=== PATIENT | female | born 1995 | race Caucasian/White ===

== ENCOUNTER 2016-07-17 23:54 | Emergency (ER) | payer BC ==
[2016-07-18] MEDS ORDERED: predniSONE 20 MG Tab PO ONE (00:06)
[2016-07-18] MEDS ORDERED: diphenhydrAMINE 50 MG/ML SDV IM ONE (00:06)
--- NOTE | 2016-07-18 00:10 | EDM.PDOC ---
ED HPI Trauma - General Chief Complaint: Upper Extremity Injury/Pain Stated Complaint: BITE/LT ARM Time Seen by Provider: 07/17/16 23:55 - History of Present Illness INITIAL COMMENTS - FREE TEXT/NARRATIVE: HISTORY AND PHYSICAL: History of present illness: The patient is a 20-year-old female who states she was bitten by a spider at about 5:30 yesterday morning has had itching redness and burning sensation at that time. She denies any other systemic complaints of fever chest pain shortness of breath facial swelling or oral swelling. She is not taking any medications for this. She otherwise denies any pre-existing medical problems. There has not been any drainage or gross swelling of the arm. Review of systems: As per history of present illness and below otherwise all systems reviewed and negative. Past medical history: As per history of present illness and as reviewed below otherwise noncontributory. Surgical history: As per history of present illness and as reviewed below otherwise noncontributory. Social history: No reported history of drug or alcohol abuse. Family history: As per history of present illness and as reviewed below otherwise noncontributory. Physical exam: General: Well-developed well-nourished female whose vital signs reviewed by me and who was her weight. She speaking clearly and easily in the ER HEENT: Atraumatic, normocephalic, negative for conjunctival pallor or scleral icterus, mucous membranes moist, throat clear, neck supple, nontender, trachea midline. No oropharyngeal swelling is seen Lungs: Clear to auscultation, breath sounds equal bilaterally, chest nontender. Heart: S1S2, regular rate and rhythm no overt murmurs Abdomen: Soft, nondistended, nontender. NABS Skin: Normal turgor, patient is very pale in her natural coloring and there is no evidence of any rashes or lesions seen with the exception of the left upper extremity, please see the exam below Genitourinary: Deferred. Rectal: Deferred. Extremities: Atraumatic, full range of motion of all extremities and at the left upper extremity on the anterior aspect of the distal soft tissues humerus area there is a small raised area which the patient indicates as the site of the bite. There is no fluctuance or drainage seen and no ecchymosis seen. Surrounding this area and extending along the anterior aspect of the arm proximally and distally there is ill-defined warmth and pinkish erythema without ecchymosis of the compartments are all soft without soft tissue swelling. The patient intermittently will scratch the area and superficial scratch samuels can be seen. All other extremity supple range of motion without defects or deficits, Neurovascular unremarkable. Neuro: Awake, alert, oriented. Cranial nerves II through XII unremarkable. Cerebellum unremarkable. Motor and sensory unremarkable throughout. Exam nonfocal. Diagnostics: none Therapeutics: Benadryl prednisone Impression: Localized reaction to insect bite Definitive disposition and diagnosis as appropriate pending reevaluation and review of above. Allergies/ADRs: Allergies No Known Allergies Allergy (Verified 07/17/16 23:59) Home Medications: Ambulatory Orders Vitaminc C 1 tab PO DAILY 01/28/16 [Confirmed 07/17/16] Past Medical History HEENT History: Reports: None Cardiovascular History: Reports: None Respiratory History: Reports: Bronchitis, recurrent, Pneumonia, recurrent Psychiatric History: Reports: None - Infectious Disease History Infectious Disease History: Reports: None Social & Family History - Recreational Drug Use Recreational Drug Use: No Review of Systems - Review of Systems Review Of Systems: ROS reveals no pertinent complaints other than HPI. Trauma Exam - Physical Exam Exam: See Below (See dictation) Course - Vital Signs Last Recorded V/S: Last Vital Signs Temp 36.9 C 07/17/16 23:59 Pulse 88 07/17/16 23:59 Resp 17 07/17/16 23:59 BP 136/93 H 07/17/16 23:59 Pulse Ox 100 07/17/16 23:59 - Orders/Labs/Meds Meds: Medications Discontinued Medications Generic Name Dose Route Start Last Admin Trade Name Edna PRN Reason Stop Dose Admin Diphenhydramine HCl 50 mg 07/18/16 00:06 Benadryl IM 07/18/16 00:07 ONETIME ONE Prednisone 40 mg 07/18/16 00:06 Prednisone PO 07/18/16 00:07 ONETIME ONE Departure - Departure Time of Disposition: 00:11 Disposition: Home, Self-Care 01 Condition: good Clinical Impression: Insect bite Qualifiers: Encounter type: initial encounter Qualified Code(s): W57.XXXA - Bitten or stung by nonvenomous insect and other nonvenomous arthropods, initial encounter Forms: ED Department Discharge Additional Instructions: The following information is given to patients seen in the emergency department who are being discharged to home. This information is to outline your options for follow-up care. We provide all patients seen in our emergency department with a follow-up referral. The need for follow-up, as well as the timing and circumstances, are variable depending upon the specifics of your emergency department visit. If you don't have a primary care physician on staff, we will provide you with a referral. We always advise you to contact your personal physician following an emergency department visit to inform them of the circumstance of the visit and for follow-up with them and/or the need for any referrals to a consulting specialist. The emergency department will also refer you to a specialist when appropriate. This referral assures that you have the opportunity for followup care with a specialist. All of these measure are taken in an effort to provide you with optimal care, which includes your followup. Under all circumstances we always encourage you to contact your private physician who remains a resource for coordinating your care. When calling for followup care, please make the office aware that this follow-up is from your recent emergency room visit. If for any reason you are refused follow-up, please contact the [facility] emergency department at and ask to speak to the emergency department charge nurse. [facility] Primary care- Internal Medicine and Family [address] [address] Please take Benadryl around the clock as prescribed next 24-36 hours and then take as needed. Take prednisone as prescribed. Please try to refrain from scratching the area and he can use cool compresses to help with the discomfort. Return to ER as needed as discussed in please followup with primary care physician for further evaluation and care of this bite.
[2016-07-18 00:34] VITALS: BP 127/88
== END 2016-07-18 00:34 | disposition home or self-care (01) ==
LOC: MW.ED 23:54
DX: S40.862A Insect bite (nonvenomous) of left upper arm, initial encounter (principal); W57.XXXA Bitten or stung by nonvenomous insect and other nonvenomous arthropods, initial encounter; Z87.01 Personal history of pneumonia (recurrent)
CPT/HCPCS: 96372; 99282; A9270; J1200; 99283